=== PATIENT | male | born 1960 | race Caucasian/White ===

== ENCOUNTER → 2017-11-16 | Outpatient (CLI) | payer OTHER ==
[2017-11-16 15:57] LABS: HEMATOCRIT 54.2 % (42-52); HEMOGLOBIN 19.1 g/dL (14.0-18.0); MEAN CELL VOLUME 92.8 fL (80-100); MEAN CORPUSCULAR HEMOGLOBIN 32.7 pg (25-34); MEAN CORPUSCULAR HGB CONC 35.2 g/dl (32-36); MEAN PLATELET VOLUME 11.1 fL (7.4-10.4); PLATELET COUNT 173 K/uL (130-400); RED CELL DISTRIBUTION WIDTH CV 12.6 % (11.5-14.5); WHITE BLOOD COUNT 7.38 K/uL (4.8-10.8)
[2017-11-16 16:20] LABS: ALBUMIN 4.7 gm/dl (3.4-5.0); ALT/SGPT 27 U/L (12-78); AST/SGOT 25 U/L (15-37); BLOOD UREA NITROGEN 36 mg/dl (7-18); CALCIUM 9.7 mg/dl (8.5-10.1); CARBON DIOXIDE 27 mmol/L (21-32); CREATININE 1.23 mg/dl (0.60-1.40); GLUCOSE 81 mg/dl (70-99); POTASSIUM 4.3 mmol/L (3.5-5.1); SODIUM 145 mmol/L (136-145)
[2017-11-16 16:23] LABS: ALKALINE PHOSPHATASE 68 U/L (45-117); TOTAL PROTEIN 8.6 gm/dl (6.4-8.2)
== END ==
LOC: C.LABSPEC 15:37
DX: Z01.89 Encounter for other specified special examinations (principal)

== ENCOUNTER 2023-02-26 11:57 | Inpatient (IN) ==
[2023-02-26 13:01] LABS: Basophils # (auto) 0.02 K/uL (0-0.2); Basophils % (auto) 0.3 %; Eosinophils # (auto) 0.11 K/uL (0-0.50); Eosinophils % (auto) 1.6 %; Hematocrit (blood only) 42.4 % (42.0-52.0); Immature Granulocytes # (auto) 0.01 K/uL (0.01-0.20); Immature Granulocytes % (auto) 0.1 %; Lymphocytes # (auto) 1.83 K/uL (1.2-3.4); Lymphocytes % (auto) 25.9 %; Mean Corpuscular Hemoglobin 30.5 pg (25.0-34.0); Mean Corpuscular Hgb Conc 35.4 g/dL (32.0-36.0); Mean Corpuscular Volume 86.2 fL (80.0-100.0); Mean Platelet Volume 8.9 fL (9.4-12.4); Monocytes # (auto) 0.68 K/uL (0.11-0.59); Monocytes % (auto) 9.6 %; Neutrophils # (auto) 4.42 K/uL (1.40-6.50); Neutrophils % (auto) 62.5 %; Platelet Count 166 K/uL (130-400); RDW Coefficient of Variation 11.9 % (11.5-14.5); RDW Standard Deviation 37.8 fL (36.4-46.3); Red Blood Count 4.92 M/uL (4.70-6.10); White Blood Count 7.07 K/ul (4.8-10.8)
[2023-02-26 13:11] LABS: Alanine Aminotransferase 24 U/L (7-52); Albumin Globulin Ratio 1.4 (0.9-2); Alkaline Phosphatase 61 U/L (34-104); Anion Gap 8 (3-11); Aspartate Aminotransferase 38 U/L (13-39); BUN Creatinine Ratio 14.6 (10-20); Bilirubin,Total 0.6 mg/dl (0.2-1.0); Blood Urea Nitrogen 13 mg/dl (6-23); Calcium 9.1 mg/dl (8.6-10.3); Carbon Dioxide 24 mmol/L (21-32); Chloride 100 mmol/L (98-107); Est GFR (African American) 106.2 ml/min; Est GFR (Non-African American) 91.6 ml/min; Globulin 2.8 gm/dl (2.5-4.0); Glucose 87 mg/dl (70-99(Fasting)); Potassium 4.1 mmol/L (3.5-5.1); Sodium 132 mmol/L (136-145); Total Protein 6.8 gm/dl (6.0-8.3)
--- NOTE | 2023-02-26 13:44 | Emergency Department Note ---
Impression & Plan Cellulitis of foot, right ED Provider Note Provider: Parth Riggins MD DATE OF SERVICE: 02/26/2023 CHIEF COMPLAINT: Right foot wound HISTORY OF PRESENT ILLNESS: Patient is a 62-year-old gentleman history of personality disorder and inguinal hernia presenting here today complaining of a wound to the base of his right foot. States this has been present for about 2 and half weeks. For the last 12 days has been undergoing some wound care and foot care with staff the halfway. States he walks a lot and thinks he had a blister about the size of his thumb there. Some trace drainage. Not a lot of pain but increasing swelling extending up into the calf region. States that for 10 to 12 days has been taking Levaquin and the swellings been progressing. No fevers. No history of significant factions. Given the expanding area of wound they sent here for further evaluation. Paperwork from the halfway does show wound culture taken on January 15 from the area growing Morganella sensitive to Levaquin, Bactrim, cefepime. PAST MEDICAL HISTORY: As detailed above MEDICATIONS: Levaquin and ibuprofen at night for some occasional pain SOCIAL HISTORY: [facility] PHYSICAL EXAM: GENERAL: alert and oriented in no acute distress on stretcher guards at bedside Head: normocephalic and atraumatic EYES: No injection, discharge or icterus. NECK: Trachea midline. ENT: Mucous membranes pink and moist. LUNGS: Airway patent. No retractions. Breath sounds clear HEART: Regular rate and rhythm. SKIN: Acyanotic, warm, dry, without rashes EXTREMITIES: Without swelling, tenderness or deformity except for the right lower extremity swelling from the right calf down towards the foot. There is some increased erythema here as well with 2+ edema. The base of the left foot has brownish to reddish discolored area approximately 10 x 12 cm. There is a small pinpoint area of open wound and while brushing with gauze and approximately 4 x 6 cm area of skin sloughed off. Underlying the seated tissue noted with some erythema. No crepitus here. Feels gross touch. Good capillary refill. Soft compartments of the left lower leg. NEUROLOGICAL: No focal deficits. No aphasia. No facial droop or slurred speech. Patient's laboratory studies and imaging reviewed. Differential includes Cellulitis, abscess, MRSA infection, DVT, necrotizing fasciitis, dermatitis, drug eruption, allergic reaction, as well as other pathologies. IMPRESSION/MEDICAL DECISION MAKING: Patient without history of diabetes or infection by report with some increased swelling and edema with redness extending from significant wound to the right foot. Small area of wound without significant drainage. During exam I approximately 4 x 6 centimeter area of skin sloughed off this area. There is erythema here but not a lot of purulence. 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 Some mild erythema extending up to the right mid calf. Some edema here. No crepitus. No severe pain. Not having systemic symptoms. No leukocytosis on blood work or anemia. No significant electrolyte abnormalities. Will obtain x-ray of the foot to look for any deeper infection but seems more superficial but overall large area of the foot but now with cellulitis extending up the leg. X-rays reviewed without evidence of bony involvement at this time. Again seems more superficial. Given his history of incarceration although cultures have grown gram-negative, will cover with vancomycin and cefepime for broad coverage as he is failing the outpatient Levaquin. Hospitalist was consulted for further care and observation overnight to look for improvement. DIAGNOSIS: Right foot cellulitis DISPOSITION: Hospitalist will evaluate Patient was agreeable with this plan. Past Med/Surg History Medical History Acid reflux Adjustment disorder Borderline personality disorder Paranoid personality Persistent depressive disorder Schizophrenia Surgical History S/P left inguinal hernia repair (09/26/21) Open left inguinal hernia repair. Dr. Ellis 09/26/2021 Surgical history unknown Family History Other Family history unknown Social History Smoking Status: Never smoker Second Hand Exposure: No; Do You Dip or Chew Tobacco: No; Hx Alcohol Use: No Hx Substance Use: No Preferred Language: Belarusian Communication Ability: Effective Visual Impairment: No Limitations Court Liaison Required: No Beliefs That Will Affect Care: None Current Living Situation: Other Current Living Situation Comment: [facility] (Inmate) Other Information That Helps Us Care for You: No Feels Safe at Home: Yes Safety Concerns: Feels Safe At This Time Assistive Devices: None Allergies Allergies Allergy/AdvReac Type Severity Reaction Status Date / Time sulfamethoxazole Allergy Unknown Verified 02/26/23 16:06 [From Bactrim] trimethoprim [From Bactrim] Allergy Unknown Verified 02/26/23 16:06 Home Meds Home Medications Medication Instructions Recorded Confirmed ibuprofen 600 mg tablet 600 mg PO Q8H PRN Pain 02/26/23 02/26/23 levofloxacin 750 mg tablet 750 mg PO DAILY 02/26/23 02/26/23 Results & Data (ED) Vital Signs Vital Signs - 24 hr 02/26/23 12:05 02/26/23 13:58 Temperature 36.9 C 36.8 C Temperature Source Temporal Artery Scan Oral Pulse Rate 72 Pulse Rate [Radial] 70 Pulse Rhythm [Radial] Regular Pulse Strength [Radial] Normal Respiratory Rate 18 16 Respiratory Effort / Characteristics Non-Labored Non-Labored Respiratory Depth Normal Normal Respiratory Pattern Regular Regular Blood Pressure 140/87 Blood Pressure [Right Arm] 134/78 Blood Pressure Mean 104 Blood Pressure Mean [Right Arm] 96 Pulse Oximetry 96 97 Oxygen Delivery Method Room Air Room Air Sepsis Recent Fever Within 48 Hours No Sepsis New/Unexplained Change in Mental Status N/A Sepsis Action Taken by Nursing No Action Required Laboratory Data 02/26/23 12:20 02/26/23 12:20 Lab Results 02/26/23 02/26/23 02/26/23 Range/Units 12:20 12:20 14:24 WBC 7.07 (4.8-10.8) K/ul RBC 4.92 (4.70-6.10) M/uL Hgb 15.0 (14.0-18.0) g/dl Hct 42.4 (42.0-52.0) % MCV 86.2 (80.0-100.0) fL MCH 30.5 (25.0-34.0) pg MCHC 35.4 (32.0-36.0) g/dL RDW Std Deviation 37.8 (36.4-46.3) fL RDW Coeff of Maria Luisa 11.9 (11.5-14.5) % Plt Count 166 (130-400) K/uL MPV 8.9 L (9.4-12.4) fL Immature Gran % (Auto) 0.1 % Neut % (Auto) 62.5 % Lymph % (Auto) 25.9 % [place] % (Auto) 9.6 % Eos % (Auto) 1.6 % Baso % (Auto) 0.3 % Neut # (Auto) 4.42 (1.40-6.50) K/uL Lymph # (Auto) 1.83 (1.2-3.4) K/uL Highlands # (Auto) 0.68 H (0.11-0.59) K/uL Eos # (Auto) 0.11 (0-0.50) K/uL Baso # (Auto) 0.02 (0-0.2) K/uL Immature Gran # (Auto) 0.01 (0.01-0.20) K/uL Sodium 132 L (136-145) mmol/L Potassium 4.1 (3.5-5.1) mmol/L Chloride 100 (98-107) mmol/L Carbon Dioxide 24 (21-32) mmol/L Anion Gap 8 (3-11) BUN 13 (6-23) mg/dl Creatinine 0.89 (0.6-1.4) mg/dl Est Cr Clr Drug Dosing Not Reportable Est GFR ( Amer) 106.2 ml/min Est GFR (Non-Af Amer) 91.6 ml/min BUN/Creatinine Ratio 14.6 (10-20) Glucose 87 (70-99(Fasting)) mg/dl Calcium 9.1 (8.6-10.3) mg/dl Total Bilirubin 0.6 (0.2-1.0) mg/dl AST 38 (13-39) U/L ALT 24 (7-52) U/L Alkaline Phosphatase 61 (34-104) U/L Total Protein 6.8 (6.0-8.3) gm/dl Albumin 4.0 (3.4-5.0) gm/dl Globulin 2.8 (2.5-4.0) gm/dl Albumin/Globulin Ratio 1.4 (0.9-2) SARS-CoV-2, RNA, NAAT NEGATIVE (NEGATIVE) Administered Medications Acetaminophen (Acetaminophen 325 Mg Tab) 650 mg PO Q4H PRN PRN Reason: pain/fever Stop: 03/28/23 16:13 Last Admin: 02/27/23 19:52 Dose: 650 mg Documented By: Admin: 02/27/23 07:38 Dose: 650 mg Documented By: Admin: 02/26/23 18:22 Dose: 650 mg Documented By: SIRI Enoxaparin Sodium (Enoxaparin Inj 40 Mg/0.4 Ml Syr) 40 mg SQ QAM KERA Stop: 03/29/23 08:59 Last Admin: 02/28/23 08:49 Dose: 40 mg Documented By: Admin: 02/27/23 10:20 Dose: 40 mg Documented By: SIRI Cefepime HCl 2,000 mg/ Syringe 20 mls @ 5 mls/min IV Q12H KERA; Protocol Stop: 03/06/23 02:29 Last Admin: 02/28/23 02:40 Dose: 5 mls/min Documented By: Admin: 02/27/23 14:50 Dose: 5 mls/min Documented By: Admin: 02/27/23 02:52 Dose: 5 mls/min Documented By: SHAYAN Discontinued Medications Vancomycin HCl 2,250 mg/ (Sodium Chloride) 545 mls @ 200 mls/hr IV NOW ONE Stop: 02/26/23 17:18 Last Admin: 02/26/23 14:46 Dose: 200 mls/hr Documented By: JAKY Cefepime HCl (Maxipime) 2,000 mg in 20 mls @ 5 mls/min IV NOW STA; Protocol Stop: 02/26/23 14:38 Last Admin: 02/26/23 14:45 Dose: 5 mls/min Documented By: JAKY Vancomycin HCl 1,250 mg/ (Sodium Chloride) 275 mls @ 200 mls/hr IV Q12H KERA Stop: 02/28/23 12:00 Last Infusion: 02/28/23 10:55 Dose: 0 mls/hr Documented By: Admin: 02/28/23 08:51 Dose: 200 mls/hr Documented By: Infusion: 02/27/23 23:42 Dose: 0 mls/hr Documented By: Admin: 02/27/23 21:38 Dose: 200 mls/hr Documented By: Infusion: 02/27/23 11:49 Dose: 0 mls/hr Documented By: Admin: 02/27/23 10:20 Dose: 200 mls/hr Documented By: Infusion: 02/27/23 00:03 Dose: 0 mls/hr Documented By: Admin: 02/26/23 22:36 Dose: 200 mls/hr Documented By: ANTOINE Imaging Data Radiologist's Impression: Foot X-Ray 02/26/23 12:11 XR foot RT min 3V routine HISTORY: 62 years-old Male Foot trauma, no prior imaging acute pain and swelling of the right foot COMPARISON: None TECHNIQUE: 3 views of the right foot FINDINGS: Moderate diffuse soft tissue swelling. Moderate-sized calcaneal enthesophytes. Dystrophic calcifications noted in the expected location of the Achilles tendon. Arterial calcifications. 3 cm soft tissue ulcer of the plantar forefoot at the level of the metatarsal heads. Mild osteoarthritis without acute fracture, dislocation or osseous erosion is identified. IMPRESSION: Soft tissue swelling and ulcer without acute osseous abnormality. ACT 112: Negative or not required by law. The above report was generated using voice recognition software. It may contain grammatical, syntax or spelling errors. Electronically signed by: Ernie Ferrell M.D. 02/26/2023 2:30 PM Discharge Plan Visit Data Chief Complaint: Foot Injury/Pain Stated Complaint: L FOOT PAIN ED Provider: Parth Riggins Discharge Problem: Cellulitis of foot, right Patient Disposition: Admitted As Inpatient Discharge Instructions Interventions: ED Discharge Assessment Last Done: 02/26/23 16:01
--- NOTE | 2023-02-26 14:32 | XRay Report ---
XR foot RT min 3V routine HISTORY: 62 years-old Male Foot trauma, no prior imaging acute pain and swelling of the right foot COMPARISON: None TECHNIQUE: 3 views of the right foot FINDINGS: Moderate diffuse soft tissue swelling. Moderate-sized calcaneal enthesophytes. Dystrophic calcificati ons noted in the expected location of the Achilles tendon. Arterial calcifications. 3 cm soft tissue ulcer of the plantar forefoot at the level of the metatarsal heads. Mild osteoarthritis without acute fracture, dislocation or osseous erosion is identified. IMPRESSION: Soft tissue swelling and ulcer without acute osseous abnormality. ACT 112: Negative or not required by law. The above report was generated using voice recognition software. It may contain grammatical, syntax o r spelling errors. Electronically signed by: Ernie Ferrell M.D. 02/26/2023 2:30 PM
[2023-02-26] MEDS ORDERED: VANCOMYCIN CONSULT ACTIVE PRN ×2 (14:35→17:03)
[2023-02-26] MEDS ORDERED: VANCOMYCIN HCL 2,250 MG in SODIUM CHLORIDE 0.9% 500 ML IV ONE (14:35)
[2023-02-26] MEDS ORDERED: CEFEPIME 2,000 MG/20 ML VIAL IV STA (14:35)
--- NOTE | 2023-02-26 15:07 | History & Physical Report ---
Date of Service February 26, 2023 Assessment & Plan (1) Right foot ulcer: Plan: This is a 62 y/o male with a history of schizophrenia, borderline personality disorder, paranoid personality disorder, and GERD who presents from [facility] with worsening infection of his right foot. Pt initially noted the wound about two and a half weeks ago, was put on levofloxacin a week ago, yet wound and associated swelling seem to be worsening even on the antibiotics, especially over the last four days. Evaluated in the ED and referred for admission for IV antibiotics and wound care evaluation. - Observe in med surg overnight to monitor response to IV antibiotics - Continue broad spectrum antibiotics for now, check wound culture and MRSA swab - consider ID consult pending results - Podiatry consult for possible debridement - Wound care nurse evaluation - Check CBC in AM (2) Cellulitis of foot, right: Plan: See plan for #1 Plan Pt seen and reviewed with collaborating physician, Dr. Murphy. Plan of care discussed and as outlined above. Code Status: Full code DVT Prophylaxis: Alexandra Lentz PA-C History of Present Illness Chief Complaint: right foot ulcer and infection Primary Care Provider: [facility] This is a 62 y/o male with a history of schizophrenia, borderline personality disorder, paranoid personality disorder, and GERD who presents from [facility] with worsening infection of his right foot. Pt reports that about two and a half weeks ago he noticed a small scrape on the bottom of his right foot that he attributed to a blister that popped. The area has continued to drain intermittently, which has caused his sock to stick to the bottom of his foot such that when he takes it off, it rips off more skin so the area has gradually gotten larger. Because of the worsening, he saw medical at the intermediate who collected a wound culture and put him on levofloxacin. The culture grew M. morganii and A. faecalis that were sensitive to levofloxacin. Over the last four days, he has noted worsening redness and swelling of the right foot that is now starting to go up his leg. He is trying to avoid putting pressure on the area so he is walking on his heel. He admits that he walks a lot in his cell, which he thinks may have also made this worse. He denies fevers, chills, sweats, CP, dyspnea, N/V. The foot is not markedly painful - he mainly notes so discomfort associated with the wound itself. He denies prior history of DM. Allergies Allergy/AdvReac Type Severity Reaction Status Date / Time sulfamethoxazole Allergy Unknown Verified 02/26/23 16:06 [From Bactrim] trimethoprim [From Bactrim] Allergy Unknown Verified 02/26/23 16:06 Home Medications Medication Instructions Recorded Confirmed Type ibuprofen 600 mg tablet 600 mg PO Q8H PRN Pain 02/26/23 02/26/23 History levofloxacin 750 mg tablet 750 mg PO DAILY 02/26/23 02/26/23 History Past Med/Surg History Medical History (Updated 02/26/23 @ 16:38 by Stephanie Lentz PA-C) Acid reflux Adjustment disorder Borderline personality disorder Paranoid personality Persistent depressive disorder Schizophrenia Surgical History S/P left inguinal hernia repair (09/26/21) Open left inguinal hernia repair. Dr. Ellis 09/26/2021 Surgical history unknown Family History Other Family history unknown Social History Smoking Status: Never smoker Second Hand Exposure: No; Do You Dip or Chew Tobacco: No; Hx Alcohol Use: No Hx Substance Use: No Preferred Language: Syriac Communication Ability: Effective Visual Impairment: No Limitations Supervisor Shop Required: No Beliefs That Will Affect Care: None Current Living Situation: Other Current Living Situation Comment: [facility] (Inmate) Other Information That Helps Us Care for You: No Feels Safe at Home: Yes Safety Concerns: Feels Safe At This Time Assistive Devices: None Review of Systems Review of Systems: All systems reviewed & are unremarkable except as noted in HPI & below Constitutional: no fever, no chills, no sweats and no anorexia Eyes: no diplopia Respiratory: no cough and no dyspnea Cardiovascular: no chest pain and no palpitations Gastrointestinal: no abdominal pain, no nausea and no vomiting Musculoskeletal: no back pain and no neck pain Integumentary: as per Subjective / HPI Neurologic: no dizziness and no headache(s) Physical Exam Constitutional: well developed and well nourished; no acute distress Eyes: + anicteric sclerae Neck: trachea midline Respiratory: no respiratory distress and no labored breathing Auscultation: lungs clear to auscultation bilaterally; no rales, no rhonchi and no wheezes Cardiovascular: Rate/Rhythm: regular rate and regular rhythm Vessels: radial pulses present Gastrointestinal (Abdomen): Inspection/Auscultation: normal bowel sounds; abdomen not distended Percussion/Palpation: abdomen soft Musculoskeletal: right foot to mid-calf with 2+ pitting edema, no calf tenderness Skin: wound on the plantar aspect of the right forefoot with no significant purulence or drainage, surrounding erythema and some areas of sloughing skin; erythema extends to lower third of right calf Neurologic: moves all extremities; no focal motor deficits and not confused Psychiatric: A+Ox3, euthymic affect Results & Data Results & Data Vital Signs (Past 12 Hours) Vital Signs Temp Pulse Pulse Resp BP BP Pulse Ox 02/26/23 13:58 36.8 C 70 16 134/78 97 02/26/23 12:05 36.9 C 72 18 140/87 96 O2 Del Method 02/26/23 13:58 Room Air 02/26/23 12:05 Room Air Laboratory Results Laboratory Results - last 24 hr 02/26/23 02/26/23 02/26/23 12:20 12:20 14:24 WBC 7.07 RBC 4.92 Hgb 15.0 Hct 42.4 MCV 86.2 MCH 30.5 MCHC 35.4 RDW Std Deviation 37.8 RDW Coeff of Maria Luisa 11.9 Plt Count 166 MPV 8.9 L Immature Gran % (Auto) 0.1 Neut % (Auto) 62.5 Lymph % (Auto) 25.9 Mcintosh % (Auto) 9.6 Eos % (Auto) 1.6 Baso % (Auto) 0.3 Neut # (Auto) 4.42 Lymph # (Auto) 1.83 [place]intosh # (Auto) 0.68 H Eos # (Auto) 0.11 Baso # (Auto) 0.02 Immature Gran # (Auto) 0.01 Sodium 132 L Potassium 4.1 Chloride 100 Carbon Dioxide 24 Anion Gap 8 BUN 13 Creatinine 0.89 Est Cr Clr Drug Dosing Not Reportable Est GFR ( Amer) 106.2 Est GFR (Non-Af Amer) 91.6 BUN/Creatinine Ratio 14.6 Glucose 87 Calcium 9.1 Total Bilirubin 0.6 AST 38 ALT 24 Alkaline Phosphatase 61 Total Protein 6.8 Albumin 4.0 Globulin 2.8 Albumin/Globulin Ratio 1.4 SARS-CoV-2, RNA, NAAT NEGATIVE Diagnostic Findings Foot X-Ray 02/26/23 12:11 XR foot RT min 3V routine HISTORY: 62 years-old Male Foot trauma, no prior imaging acute pain and swelling of the right foot COMPARISON: None TECHNIQUE: 3 views of the right foot FINDINGS: Moderate diffuse soft tissue swelling. Moderate-sized calcaneal enthesophytes. Dystrophic calcifications noted in the expected location of the Achilles tendon. Arterial calcifications. 3 cm soft tissue ulcer of the plantar forefoot at the level of the metatarsal heads. Mild osteoarthritis without acute fracture, dislocation or osseous erosion is identified. IMPRESSION: Soft tissue swelling and ulcer without acute osseous abnormality. Medications Administered Vancomycin HCl 2,250 mg/ (Sodium Chloride) 545 mls @ 200 mls/hr IV NOW ONE Stop: 02/26/23 17:18 Last Admin: 02/26/23 14:46 Dose: 200 mls/hr Documented By: JAKY Discontinued Medications Cefepime HCl (Maxipime) 2,000 mg in 20 mls @ 5 mls/min IV NOW STA; Protocol Stop: 02/26/23 14:38 Last Admin: 02/26/23 14:45 Dose: 5 mls/min Documented By: JAKY Code Status & VTE Plan VTE Prophylaxis Plan VTE Prophylaxis will be ordered: Yes Supervising Physician Co-Signing Physician Notes I have seen and examined the patient and have discussed the case with the provider above. I agree with the assessment and plan as stated with the following exceptions. 62 yo incarcerated nondiabetic man presents with a worsening foot ulcer with subsequent RLE cellulitis refractory to outpatient oral antibiotic therapy for approximately 12 days. He is in NAD and has no clinical appearance of sepsis. He is mentating clearly and denies any fevers or chills. He denies other issues and reports walking on his feet in boots. On exam RLE to the mid bailey is erythematous and his right foot appears poorly cared for with significant skin interdigitally and on all surfaces of the foot and toes. There is an area of eschar on the plantar surface of the foot with a shallow ulceration centrally, where the eschar has worn away. There is a generalized swelling to the right foot and ankle. Labs/imaging reviewed. CBC and chem panel are WNL. Foot xray reveals ulceration, swelling and no bony involvement. He was started on Vancomycin and cefepime in the ER. Will continue this empirically pending clinical improvement and culture results. Podiatry and wound care consulted for consideration for debridement during this admission. He has no access to this as outpatient given his incarceration. Otherwise agree with plan as stated above. DO Jeffrey
[2023-02-26] MEDS: ACETAMINOPHEN 325 MG TAB PO PRN (18:22)
--- NOTE | 2023-02-26 20:03 | Pharmacy Report ---
Pharmacy Vanc AUC Short Note - Date of Service February 26, 2023 - Assessment & Plan Assessment 62 year old M receiving vancomycin for empiric treatment. First day of antimicrobial therapy: 02/26/23 Plan Vancomycin * Load: Vancomycin 2,250 mg IV once on 02/26/23 at 1446. * Maintenance: Vancomycin 1,250 mg IV q12h starting on 02/26/23 at 2200. * AUC/DANIELITO is the preferred PK/PD target for vancomycin * AUC guided dosing is effective and associated with decreased risk of nephrotoxicity compared to traditional trough targets * Trough level of 503 mcg/mL is predicted to achieve target AUC/DANIELITO of 400-600 mg/L.hr and may be associated with a 11% risk of nephrotoxicity * Trough or random level ordered for: 02/28/23 with morning labs. Pharmacy will continue to follow and will adjust dose/frequency as necessary. Thank you.
--- NOTE | 2023-02-26 21:40 | Orthopedic Consultation ---
Date of Consultation February 26, 2023 Assessment & Plan (1) Right foot ulcer: Patient seen, evaluated and treated. Reviewed x-ray and x-ray findings Discussed partial thickness wound with Patient. Dressing applied including adaptic, gauze, kerlix. Patient weight bearing to heel. Will continue to follow while in house. History of Present Illness Attending Physician: Juliana Murphy DO History of Present Illness Patient is a 62 year old male seen at bedside for a right foot infection. Patient history obtained from Patient as well as past documentation. Patient has a past medical history significant for schizophrenia, borderline personality disorder, paranoid personality disorder, and GERD. Patient is currently housed in [facility]. Patient notes about two and a half weeks ago he developed a scrape on the bottom of his right foot. The area worsened and started to drain intermittently. The area has gradually gotten larger. Because of the worsening, he saw medical at the detention who collected a wound culture and put him on levofloxacin. The culture grew M. morganii and A. faecalis that were sensitive to levofloxacin. Over the last four days, he has noted worsening redness and swelling of the right foot that is now starting to go up his leg and was brought to [facility]. Allergies Allergy/AdvReac Type Severity Reaction Status Date / Time sulfamethoxazole Allergy Unknown Verified 02/26/23 16:06 [From Bactrim] trimethoprim [From Bactrim] Allergy Unknown Verified 02/26/23 16:06 Home Medications Medication Instructions Recorded Confirmed Type ibuprofen 600 mg tablet 600 mg PO Q8H PRN Pain 02/26/23 02/26/23 History levofloxacin 750 mg tablet 750 mg PO DAILY 02/26/23 02/26/23 History Patient History Medical History Acid reflux Adjustment disorder Borderline personality disorder Paranoid personality Persistent depressive disorder Schizophrenia Surgical History S/P left inguinal hernia repair (09/26/21) Open left inguinal hernia repair. Dr. Ellis 09/26/2021 Surgical history unknown Family History Other Family history unknown Social History Smoking Status: Never smoker Second Hand Exposure: No; Do You Dip or Chew Tobacco: No; Hx Alcohol Use: No Hx Substance Use: No Preferred Language: [place] Communication Ability: Effective Visual Impairment: No Limitations Academic Vice President Required: No Beliefs That Will Affect Care: None Current Living Situation: Other Current Living Situation Comment: [facility] (Inmate) Other Information That Helps Us Care for You: No Feels Safe at Home: Yes Safety Concerns: Feels Safe At This Time Assistive Devices: None Review of Systems Review of Systems: All systems reviewed & are unremarkable except as noted in HPI & below Physical Exam Constitutional: cooperative and comfortable Eyes: normal visual morejon by confrontation Neck: normal visual inspection Respiratory: normal respiratory effort and + respiratory distress Musculoskeletal: Extremities: extremities normal to inspection Neurologic: moves all extremities Psychiatric: Orientation: alert and oriented x 3 Results & Data Vital Signs (Past 12 Hours) Vital Signs Temp Pulse Pulse Pulse Resp BP BP 02/26/23 16:10 36.7 C 54 L 16 136/83 02/26/23 13:58 36.8 C 70 16 134/78 02/26/23 12:05 36.9 C 72 18 140/87 Pulse Ox O2 Del Method 02/26/23 16:10 100 Room Air 02/26/23 13:58 97 Room Air 02/26/23 12:05 96 Room Air Diagnostic Findings [place] [phone] XRay Report Patient:CHERIE MAY [id number] Admit Date:02/26/23 MR#:[id number] Address1:[facility] Acct ID:[id number] Address2:[address] Date:1960 [facility] Zip:[place] [address] Age:62 Location:ED Sex:M Room/Bed: Att Phy: Diagnosis:L FOOT PAIN [place] Phy:[facility] Service Date:02/26/23 Fam Phy: Interpreting Phy:Ernie FerrellAdmit Phy: Ordering Phy:Parth Riggins M.D. cc: ~ XR foot RT min 3V routine HISTORY: 62 years-old Male Foot trauma, no prior imaging acute pain and swelling of the right foot COMPARISON: None TECHNIQUE: 3 views of the right foot FINDINGS: Moderate diffuse soft tissue swelling. Moderate-sized calcaneal enthesophytes. Dystrophic calcifications noted in the expected location of the Achilles tendon. Arterial calcifications. 3 cm soft tissue ulcer of the plantar forefoot at the level of the metatarsal heads. Mild osteoarthritis without acute fracture, dislocation or osseous erosion is identified. IMPRESSION: Soft tissue swelling and ulcer without acute osseous abnormality. ACT 112: Negative or not required by law. The above report was generated using voice recognition software. It may contain grammatical, syntax or spelling errors. Electronically signed by: Ernie Ferrell M.D. 02/26/2023 2:30 PM Dictated:02/26/23 1428 Transcribed: 02/26/23 1428
[2023-02-26] MEDS: VANCOMYCIN HCL 1,250 MG in SODIUM CHLORIDE 0.9% 250 ML IV SCH (22:36)
[2023-02-27] MEDS: CEFEPIME 2,000 MG in SYRINGE 0 ML IV SCH ×2 (02:52→14:50)
[2023-02-27 07:33] LABS: Basophils # (auto) 0.03 K/uL (0-0.2); Basophils % (auto) 0.5 %; Eosinophils # (auto) 0.09 K/uL (0-0.50); Eosinophils % (auto) 1.4 %; Hematocrit (blood only) 45.4 % (42.0-52.0); Hemoglobin 15.7 g/dl (14.0-18.0); Immature Granulocytes # (auto) 0.01 K/uL (0.01-0.20); Immature Granulocytes % (auto) 0.2 %; Lymphocytes # (auto) 1.72 K/uL (1.2-3.4); Lymphocytes % (auto) 27.2 %; Mean Corpuscular Hgb Conc 34.6 g/dL (32.0-36.0); Mean Corpuscular Volume 86.6 fL (80.0-100.0); Monocytes # (auto) 0.62 K/uL (0.11-0.59); Monocytes % (auto) 9.8 %; Neutrophils # (auto) 3.86 K/uL (1.40-6.50); Neutrophils % (auto) 60.9 %; Platelet Count 152 K/uL (130-400); RDW Coefficient of Variation 12.2 % (11.5-14.5); RDW Standard Deviation 38.7 fL (36.4-46.3); Red Blood Count 5.24 M/uL (4.70-6.10); White Blood Count 6.33 K/ul (4.8-10.8)
[2023-02-27] MEDS: ACETAMINOPHEN 325 MG TAB PO PRN ×2 (07:38→19:52)
[2023-02-27 07:50] LABS: Creatinine Clr Calc Pharmacy 106.4 ml/min; Est GFR (African American) 100.3 ml/min; Est GFR (Non-African American) 86.5 ml/min
[2023-02-27] MEDS: VANCOMYCIN HCL 1,250 MG in SODIUM CHLORIDE 0.9% 250 ML IV SCH ×2 (10:20→21:38)
[2023-02-27] MEDS: ENOXAPARIN INJ 40 MG/0.4 ML SYR SQ SCH (10:20)
--- NOTE | 2023-02-27 15:18 | Hospitalist Progress Note ---
Date of Service February 27, 2023 Assessment & Plan (1) Right foot ulcer: Plan: This is a 62 y/o male with a history of schizophrenia, borderline personality disorder, paranoid personality disorder, and GERD who presents from [facility] with worsening infection of his right foot. Pt initially noted the wound about two and a half weeks ago after started as what appeared to be a small blister. He was put on levofloxacin a week ago, yet wound and associated swelling seem to be worsening even on the antibiotics, especially over the last four days. Evaluated in the ED and referred for admission for IV antibiotics and wound care evaluation. He had wound culture as OP that grew M. morganii and A. faecalisand this was viewed in his paper chart He is on Day #2 of IV Vancomycin and Cefepime He has had significant improvement over last 24 hours, redness/swelling improved wound culture never obtained in ED; however no drainage to culture at this point, wound is dry MRSA screen negative will consult ID for antibiotic and duration recs Podiatry consult noted and appreciated WB to heel only Wound care nurse consulted and will see tomorrow (2) Cellulitis of foot, right: Plan: See plan for #1 Plan DVT ppx: Lovenox Dispo: Pt from [facility] FULL CODE Pt was seen and examined in collaboration with Dr. Thomas, please see addendum Admission and Anticipated Discharge Date Admission Date: February 26, 2023 Supervising Physician Co-Signing Physician Notes Patient was seen and examined independently. Chart reviewed. Case discussed with CAN Subjective Pt was seen and examined in 360-1 with guards at bedside. F/U R plantar foot cellulitis. He has kept RLE propped on pillow for 16 hrs and swelling and redness and reduced tremendously. He does have mild pain on bottom of foot. Denies f/c/s, chest pain, sob, n/v/d, abd pain. Currently has dressing in place. Review of Systems Review of Systems: All systems reviewed & are unremarkable except as noted in HPI & below Physical Exam Physical Exam: Gen: WD/WN, NAD, A&O x3 HEENT: Normocephalic, atraumatic, conjunctivae moist, sclerae anicteric, mucous membranes moist. Lung: Clear to Auscultation bilaterally, no wheezes/rales/rhonchi Heart: Regular rate, regular rhythm, no murmurs, rubs, or gallops Abdomen: Soft, NT, ND +BS x 4 Extremities: No edema, R plantar foot wound (appeared to be a blister that has unroofed), no further redness, or pain to palpation Skin: Warm, no rash, negative turgor. Results & Data Results & Data Vital Signs (Past 12 Hours) Vital Signs Temp Pulse Resp BP Pulse Ox O2 Del Method 02/27/23 07:13 36.9 C 55 L 17 127/80 98 Room Air Laboratory Results Short CBC 02/27/23 Range/Units 07:09 WBC 6.33 (4.8-10.8) K/ul Hgb 15.7 (14.0-18.0) g/dl Hct 45.4 (42.0-52.0) % Plt Count 152 (130-400) K/uL BMP 02/27/23 07:09 Creatinine 0.94 Medications Administered Current Inpatient Medications Acetaminophen (Acetaminophen 325 Mg Tab) 650 mg PO Q4H PRN PRN Reason: pain/fever Stop: 03/28/23 16:13 Last Admin: 02/27/23 07:38 Dose: 650 mg Enoxaparin Sodium (Enoxaparin Inj 40 Mg/0.4 Ml Syr) 40 mg SQ QAM KERA Stop: 03/29/23 08:59 Last Admin: 02/27/23 10:20 Dose: 40 mg Cefepime HCl 2,000 mg/ Syringe 20 mls @ 5 mls/min IV Q12H [facility]; Protocol Stop: 03/06/23 02:29 Last Admin: 02/27/23 14:50 Dose: 5 mls/min Vancomycin HCl 1,250 mg/ (Sodium Chloride) 275 mls @ 200 mls/hr IV Q12H KERA Stop: 02/28/23 21:59 Last Infusion: 02/27/23 11:49 Dose: Infused Miscellaneous Information (Vancomycin Consult Active) 1 each N/A UD PRN PRN Reason: Consult Stop: 03/28/23 17:02
[2023-02-28] MEDS: CEFEPIME 2,000 MG in SYRINGE 0 ML IV SCH ×2 (02:40→13:39)
[2023-02-28] MEDS ORDERED: VANCOMYCIN LEVEL ONE (08:00)
[2023-02-28] MEDS: ENOXAPARIN INJ 40 MG/0.4 ML SYR SQ SCH (08:49)
[2023-02-28 08:51] LABS: Basophils # (auto) 0.03 K/uL (0-0.2); Basophils % (auto) 0.5 %; Eosinophils # (auto) 0.12 K/uL (0-0.50); Eosinophils % (auto) 2.1 %; Hematocrit (blood only) 45.1 % (42.0-52.0); Hemoglobin 15.3 g/dl (14.0-18.0); Immature Granulocytes # (auto) 0.01 K/uL (0.01-0.20); Immature Granulocytes % (auto) 0.2 %; Lymphocytes # (auto) 2.11 K/uL (1.2-3.4); Lymphocytes % (auto) 37.7 %; Mean Corpuscular Hemoglobin 30.1 pg (25.0-34.0); Mean Corpuscular Hgb Conc 33.9 g/dL (32.0-36.0); Mean Corpuscular Volume 88.6 fL (80.0-100.0); Mean Platelet Volume 9.4 fL (9.4-12.4); Monocytes # (auto) 0.42 K/uL (0.11-0.59); Monocytes % (auto) 7.5 %; Neutrophils # (auto) 2.91 K/uL (1.40-6.50); Platelet Count 150 K/uL (130-400); RDW Coefficient of Variation 12.1 % (11.5-14.5); RDW Standard Deviation 39.4 fL (36.4-46.3); Red Blood Count 5.09 M/uL (4.70-6.10)
[2023-02-28] MEDS: VANCOMYCIN HCL 1,250 MG in SODIUM CHLORIDE 0.9% 250 ML IV SCH (08:51)
[2023-02-28 09:14] LABS: Albumin Globulin Ratio 1.3 (0.9-2); Albumin Level 3.7 gm/dl (3.4-5.0); BUN Creatinine Ratio 15.6 (10-20); Bilirubin,Total 0.5 mg/dl (0.2-1.0); Calcium 9.1 mg/dl (8.6-10.3); Creatinine Clr Calc Pharmacy 111.1 ml/min; Est GFR (African American) 105.7 ml/min; Est GFR (Non-African American) 91.2 ml/min; Globulin 2.8 gm/dl (2.5-4.0); Magnesium 2.1 mg/dl (1.7-2.4); Potassium 4.2 mmol/L (3.5-5.1); Total Protein 6.5 gm/dl (6.0-8.3)
--- NOTE | 2023-02-28 09:36 | Pharmacy Report ---
Pharmacy Vanc AUC Short Note - Date of Service February 28, 2023 - Assessment & Plan Assessment * 62 year old M receiving vancomycin + cefepime for treatment of R foot infection after failing outpt abx (levofloxacin). * Pertinent microbiologic data includes: negative MRSA Nasal Swab, 02/27 R foot cx pending, noted to have wound culture as outpt that grew M. morganii and A. faecalis per provider's note * Ronnidieter MARTINEZ has been consulted, awaiting recs * Day # 3 of vancomycin, # 2 Cefepime Plan Vancomycin * AUC/DANIELITO is the preferred PK/PD target for vancomycin * AUC guided dosing is effective and associated with decreased risk of nephrotoxicity compared to traditional trough targets * Has been receiving 1250mg IV q 12 hrs * Level of 10.3 mcg/mL obtained this AM, drawn ~ 8 hours after last dose hung. * Will change dose to 1500mg IV q 12 hrs, to begin at ~2100 this PM. This new dose is predicted to achieve target AUC/DANIELITO of 400-600 mg/L.hr and may be associated with a 8 % risk of nephrotoxicity * Level ordered for: 03/02/23 Pharmacy will continue to follow and will adjust dose/frequency as necessary. Thank you.
--- NOTE | 2023-02-28 13:34 | Hospitalist Progress Note ---
Date of Service February 28, 2023 Assessment & Plan (1) Right foot ulcer: Plan: This is a 62 y/o male with a history of schizophrenia, borderline personality disorder, paranoid personality disorder, and GERD who presents from [facility] with worsening infection of his right foot. Pt initially noted the wound about two and a half weeks ago after started as what appeared to be a small blister. He was put on levofloxacin a week ago, yet wound and associated swelling seem to be worsening even on the antibiotics, especially over the last four days. Evaluated in the ED and referred for admission for IV antibiotics and wound care evaluation. He had wound culture as OP that grew M. morganii and A. faecalisand this was viewed in his paper chart He is on Day #3 of IV Vancomycin and Cefepime He has had significant improvement over last 48 hours, redness/swelling improved wound culture never obtained in ED; however no drainage to culture at this point, wound is dry wound culture obtained 02/27 MRSA screen negative ID saw patient today at 1100, awaiting recs, not yet in [facility] Podiatry consult noted and appreciated WB to heel only Wound care nurse consulted and will see (2) Cellulitis of foot, right: Plan: See plan for #1 Plan DVT ppx: Lovenox Dispo: Pt from [facility] FULL CODE Pt was seen and examined in collaboration with Dr. Chandler, please see addendum Admission and Anticipated Discharge Date Admission Date: February 26, 2023 Supervising Physician Co-Signing Physician Notes Attending addendum Patient was seen and examined in medical floor He has been feeling much better The right sole is looking much better without any evidence of discharge Denies any significant symptoms On examination Lying in bed comfortably Hemodynamically stable Chest-clear to auscultate bilaterally Heart-S1-S2, regular Abdomen-benign Right leg and sole-right sole is red, black eschar without any evidence of drainage His medications and labs reviewed Appreciate ID input and recommendation Agree with assessment and plan as outlined above by Lacey Chandler Subjective Pt was seen and examined in 360-1 with guards at bedside. F/U R plantar foot cellulitis. Continues to elevate RLE and swelling is gone. Still has some pain but much improved and redness much improved. Good Appetite. Denies f/c/s, chest pain, sob, n/v/d abd pain. Review of Systems Review of Systems: All systems reviewed & are unremarkable except as noted in HPI & below Physical Exam Physical Exam: Gen: WD/WN, NAD, A&O x3 HEENT: Normocephalic, atraumatic, conjunctivae moist, sclerae anicteric, mucous membranes moist. Lung: Clear to Auscultation bilaterally, no wheezes/rales/rhonchi Heart: Regular rate, regular rhythm, no murmurs, rubs, or gallops Abdomen: Soft, NT, ND +BS x 4 Extremities: No edema, R plantar foot wound (appeared to be a blister that has unroofed), no further redness, or pain to palpation Skin: Warm, no rash, negative turgor. Results & Data Results & Data Vital Signs (Past 12 Hours) Vital Signs Temp Pulse Resp BP Pulse Ox O2 Del Method 02/28/23 07:31 36.4 C 51 L 20 141/89 H 97 Room Air Diagnostic Findings Short CBC 02/28/23 Range/Units 07:30 WBC 5.60 (4.8-10.8) K/ul Hgb 15.3 (14.0-18.0) g/dl Hct 45.1 (42.0-52.0) % Plt Count 150 (130-400) K/uL BMP 02/28/23 07:30 Sodium 137 Potassium 4.2 Chloride 106 Carbon Dioxide 27 BUN 14 Creatinine 0.90 Glucose 92 Calcium 9.1 Liver Function 02/28/23 Range/Units 07:30 Total Bilirubin 0.5 (0.2-1.0) mg/dl AST 33 (13-39) U/L ALT 23 (7-52) U/L Alkaline Phosphatase 57 (34-104) U/L Albumin 3.7 (3.4-5.0) gm/dl Medications Administered Current Inpatient Medications Acetaminophen (Acetaminophen 325 Mg Tab) 650 mg PO Q4H PRN PRN Reason: pain/fever Stop: 03/28/23 16:13 Last Admin: 02/27/23 19:52 Dose: 650 mg Enoxaparin Sodium (Enoxaparin Inj 40 Mg/0.4 Ml Syr) 40 mg SQ QAM KERA Stop: 03/29/23 08:59 Last Admin: 02/28/23 08:49 Dose: 40 mg Cefepime HCl 2,000 mg/ Syringe 20 mls @ 5 mls/min IV Q12H KERA; Protocol Stop: 03/06/23 02:29 Last Admin: 02/28/23 02:40 Dose: 5 mls/min Vancomycin HCl 1,500 mg/ (Sodium Chloride) 530 mls @ 200 mls/hr IV Q12H KERA Stop: 03/07/23 20:59 Miscellaneous Information (Vancomycin Consult Active) 1 each N/A UD PRN PRN Reason: Consult Stop: 03/28/23 17:02
[2023-02-28] MEDS: VANCOMYCIN HCL 1,500 MG in SODIUM CHLORIDE 0.9% 500 ML IV SCH (20:35)
[2023-03-01] MEDS: CEFEPIME 2,000 MG in SYRINGE 0 ML IV SCH (03:00)
[2023-03-01 07:12] LABS: Creatinine Clr Calc Pharmacy 103.1 ml/min; Est GFR (African American) 96.6 ml/min; Est GFR (Non-African American) 83.3 ml/min
[2023-03-01] MEDS: ENOXAPARIN INJ 40 MG/0.4 ML SYR SQ SCH (09:20)
[2023-03-01] MEDS: VANCOMYCIN HCL 1,500 MG in SODIUM CHLORIDE 0.9% 500 ML IV SCH (10:03)
[2023-03-01] MEDS: CIPROFLOXACIN 500 MG TAB PO SCH ×2 (10:45→16:51)
[2023-03-01] MEDS: LINEZOLID 600 MG TAB PO SCH ×2 (10:46→16:51)
[2023-03-01] MEDS ORDERED: Nursing to Pharmacy Communication SCH (13:45)
--- NOTE | 2023-03-01 15:19 | Hospitalist Progress Note ---
Date of Service March 01, 2023 Assessment & Plan (1) Right foot ulcer: Plan: This is a 62 y/o male with a history of schizophrenia, borderline personality disorder, paranoid personality disorder, and GERD who presents from [facility] with worsening infection of his right foot. Pt initially noted the wound about two and a half weeks ago after started as what appeared to be a small blister. He was put on levofloxacin a week ago, yet wound and associated swelling seem to be worsening even on the antibiotics, especially over the last four days. Evaluated in the ED and referred for admission for IV antibiotics and wound care evaluation. He had wound culture as OP that grew M. morganii and A. faecalisand this was viewed in his paper chart He is on Day #4 of IV Vancomycin and Cefepime He has had significant improvement over last 48 hours, redness/swelling improved wound culture never obtained in ED; however no drainage to culture at this point, wound is dry wound culture obtained 02/27 MRSA screen negative Podiatry consult noted and appreciated WB to heel only Wound care nurse consulted and will see Appreciate ID input and recommendation Has been started on oral Cipro 500 twice daily and Zyvox 600 twice daily to continue for a total of 14 days Continue with dressing as advised by the wound care Discussed with provider at [facility] and he will be discharged home this evening (2) Cellulitis of foot, right: Plan: See plan for #1 Plan DVT ppx: Lovenox Dispo: Pt from [facility] FULL CODE Admission and Anticipated Discharge Date Admission Date: February 28, 2023 Subjective 03/01/2023 The patient was seen and examined in medical floor He has been much better and does not have any complaints He was started with oral antibiotic and will be going to the group home this afternoon/evening Review of Systems Review of Systems: All systems reviewed and are unremarkable except as noted below Physical Exam Physical Exam: Lying in bed comfortably Constitutional: well developed, well nourished and + obese; not ill appearing Eyes: PERRL, conjunctivae normal, anicteric sclerae ENMT: external ear and nose normal, oropharynx normal Neck: trachea midline, no thyromegaly Respiratory: no respiratory distress Auscultation: lungs clear to auscultation bilaterally Cardiovascular: Rate/Rhythm: regular rate, regular rhythm and + bradycardic Heart Sounds: normal S1 and normal S2; no murmur Extremities: + edema Gastrointestinal (Abdomen): Inspection/Auscultation: normal bowel sounds; abdomen not distended Percussion/Palpation: abdomen soft; abdomen nontender Musculoskeletal: No acute arthritis involving any of the joint. Right sole of the foot looks better with minimal redness and no drainage Neurologic: Alert, awake and oriented x3. No focal sensory or no motor deficit appreciated Lymphatic: no cervical or axillary lymphadenopathy Results & Data Results & Data Vital Signs (Past 12 Hours) Vital Signs Temp Pulse Resp BP Pulse Ox O2 Del Method 03/01/23 06:55 36.5 C 52 L 16 118/78 98 Room Air
--- NOTE | 2023-03-02 17:20 | Discharge Summary ---
Date of Service March 02, 2023 Admission HPI Per Admitting Provider This is a 62 y/o male with a history of schizophrenia, borderline personality disorder, paranoid personality disorder, and GERD who presents from [facility] with worsening infection of his right foot. Pt reports that about two and a half weeks ago he noticed a small scrape on the bottom of his right foot that he attributed to a blister that popped. The area has continued to drain intermittently, which has caused his sock to stick to the bottom of his foot such that when he takes it off, it rips off more skin so the area has gradually gotten larger. Because of the worsening, he saw medical at the skilled nursing who co llected a wound culture and put him on levofloxacin. The culture grew M. morganii and A. faecalis that were sensitive to levofloxacin. Over the last four days, he has noted worsening redness and swelling of the right foot that is now starting to go up his leg. He is trying to avoid putting pressure on the area so he is walking on his heel. He admits that he walks a lot in his cell, which he thinks may have also made this worse. He denies fevers, chills, sweats, CP, dyspnea, N/V. The foot is not markedly painful - he mainly notes so discomfort associated with the wound itself. He denies prior history of DM. Admission Exam Per Admitting Provider Constitutional: well developed and well nourished; no acute distress Eyes: + anicteric sclerae Neck: trachea midline Respiratory: no respiratory distress and no labored breathing Auscultation: lungs clear to auscultation bilaterally; no rales, no rhonchi and no wheezes Cardiovascular: Rate/Rhythm: regular rate and regular rhythm Vessels: radial pulses present Gastrointestinal (Abdomen): Inspection/Auscultation: normal bowel sounds; abdomen not distended Percussion/Palpation: abdomen soft Musculoskeletal: right foot to mid-calf with 2+ pitting edema, no calf tenderness Skin: wound on the plantar aspect of the right forefoot with no significant purulence or drainage, surrounding erythema and some areas of sloughing skin; erythema extends to lower third of right calf Neurologic: moves all extremities; no focal motor deficits and not confused Psychiatric: A+Ox3, euthymic affect Principal Diagnosis Right foot cellulitis with ulceration Discharge Exam Lying in bed comfortably Constitutional well developed, well nourished and + obese; not ill appearing Eyes PERRL, conjunctivae normal, anicteric sclerae ENMT external ear and nose normal, oropharynx normal Neck trachea midline, no thyromegaly Respiratory no respiratory distress Auscultation: lungs clear to auscultation bilaterally Cardiovascular Rate/Rhythm: regular rate, regular rhythm and + bradycardic Heart Sounds: normal S1 and normal S2; no murmur Extremities: + edema Gastrointestinal (Abdomen) Inspection/Auscultation: normal bowel sounds; abdomen not distended Percussion/Palpation: abdomen soft; abdomen nontender Lymphatic no cervical or axillary lymphadenopathy Discharge Data Allergies Allergy/AdvReac Type Severity Reaction Status Date / Time sulfamethoxazole Allergy Unknown Verified 02/26/23 16:06 [From Bactrim] trimethoprim [From Bactrim] Allergy Unknown Verified 02/26/23 16:06 Consultations 02/26/23 14:42 ED Decision to Admit Stat 02/26/23 15:55 Consult Podiatry Routine 02/27/23 12:58 Consult Infectious Diseases Routine Hospital Course (1) Right foot ulcer: This is a 62 y/o male with a history of schizophrenia, borderline personality disorder, paranoid personality disorder, and GERD who presents from [facility] with worsening infection of his right foot. Pt initially noted the wound about two and a half weeks ago after started as what appeared to be a small blister. He was put on levofloxacin a week ago, yet wound and associated swelling seem to be worsening even on the antibiotics, especially over the last four days. Evaluated in the ED and referred for admission for IV antibiotics and wound care evaluation. He had wound culture as OP that grew M. morganii and A. faecalisand this was viewed in his paper chart He is on Day #4 of IV Vancomycin and Cefepime He has had significant improvement over last 48 hours, redness/swelling improved wound culture never obtained in ED; however no drainage to culture at this point, wound is dry wound culture obtained 02/27 MRSA screen negative Podiatry consult noted and appreciated WB to heel only Wound care nurse consulted and will see Appreciate ID input and recommendation Has been started on oral Cipro 500 twice daily and Zyvox 600 twice daily to continue for a total of 14 days Continue with dressing as advised by the wound care Discussed with provider at [facility] and he will be discharged home this evening (2) Cellulitis of foot, right: See plan for #1 Plan DVT ppx: Lovenox Dispo: Pt from [facility] FULL CODE Total Time Total Time Spent Total Time Spent (In Minutes): 45 minutes Discharge Plan Discharge Items [facility]position[facility] Reason For Visit: RIGHT FOOT ULCER/CELLULITIS Discharge Diagnosis: Right foot cellulitis with ulceration Condition on Discharge: Good Activity: Resume your previous activity Non-emergency contact: Primary Care Provider Call non-emergency contact if: you have any medication questions and your symptoms worsen Follow-up/Referrals: Donna PIMENTEL [Primary Care Provider] - Diet: Regular Addtl Attending Provider Instructions: Please take precautions to avoid fall Use nonadherent gauze (or 4x4 gauge)to dress the sole of the right foot daily for about 10 days( until the course of antibiotic is over or the wound is better) Finish the course of antibiotic Pending Studies at Discharge: No Stand-Alone Forms: [employer], Smoking Cessation Skilled Items Patient informed of condition?: Yes Discharge Level of Care: Other Communicable Disease: No Discharge Prognosis: Improving Lines: None Urinary Catheter: No Medications and DC Order Prescriptions: New ciprofloxacin HCl 500 mg Tablet 500 mg PO BID 10 Days Qty: 20 0RF linezolid 600 mg Tablet 600 mg PO BID 10 Days Qty: 20 0RF Continued ibuprofen 600 mg Tablet 600 mg PO Q8H PRN (Reason: Pain) Discontinued levofloxacin [Levaquin] 750 mg Tablet 750 mg PO DAILY Rx Instructions: Start Date 02/22/23 - End Date 02/28/23 Discharge Orders: Discharge Order (Routine); Ordered 03/01/23 Ordered By: Maggie Chandler Admission Data Admit Date/Time: 02/28/23 14:46 Attending Provider: Maggie Chandler Admit Provider: Juilana Murphy Primary Care Provider: Donna PIMENTEL Other Providers: Bala Foy ; Cesar Fernandes II Other Interventions: Discharge Summary Assessment (RN) Last Done: 03/01/23 16:18
== END 2023-03-01 17:57 | DRG 603 ==
LOC: ED 11:57 → SUATTDRO 15:06 → INTOOBSV 15:06 → 3W 15:06